=== PATIENT | female | born 1960 | race Caucasian/White ===

== ENCOUNTER 2021-05-12 12:17 | Emergency (ER) | payer OTHER ==
[~2021-05-12 12:17] MED LIST: ASPIRIN CHEWABL81 MG PO; COLACE100 MG PO; HCTZ25 MG PO; LEXAPRO 10MG TA10 MG PO; MEDROL 4MG DOSEP4 MG PO; PERCOCET 5-3251 EACH PO; PRAVACHOL20 MG PO; PRILOSEC20 MG PO; SENNA-TIME S T1 EACH PO; TRAVATAN Z5 ML OU
== END 2021-05-12 15:23 | disposition home or self-care (01) ==
LOC: FER 12:17
DX: S80.02XA Contusion of left knee, initial encounter (principal); W01.0XXA Fall on same level from slipping, tripping and stumbling without subsequent striking against object, initial encounter; Y92.009 Unspecified place in unspecified non-institutional (private) residence as the place of occurrence of the external cause
CPT/HCPCS: 73560